=== PATIENT | male | born 1985 | race Caucasian/White ===

== ENCOUNTER 2019-10-21 15:09 | Emergency (ER) | payer MEDICAID ==
[~2019-10-21] VITALS: Ht 185.4 cm; Wt 81.8 kg
[2019-10-21 15:14] VITALS: BP 134/86
[2019-10-21] MEDS ORDERED: PENI500T2 PO (16:31)
== END 2019-10-21 16:42 | disposition home or self-care (01) ==
LOC: ER 15:10
DX: K02.9 Dental caries, unspecified (principal); K03.2 Erosion of teeth; R11.0 Nausea; F17.200 Nicotine dependence, unspecified, uncomplicated; Z79.899 Other long term (current) drug therapy
CPT/HCPCS: 99283